=== PATIENT | male | born 1930 | race Caucasian/White ===

== ENCOUNTER 2017-05-18 06:24 | Inpatient (IN) | payer OTHER ==
[2017-04-29 13:05] VITALS: Ht 172.7 cm; Wt 93.2 kg
--- NOTE | 2017-05-14 18:33 | History and Physical ---
History & Physical Date May 14, 2017. Chief Complaint RIGHT KNEE PAIN History of Present Illness The patient is a 86 year old male with complaints of right knee pain for years. cant do adls. Pt has tried nsaids and PT with no relief. Hes ready for right tka. Has hx of prostate ca in 2012. Additional History Hepatic Disease: No Endocrine Disorder: No Kidney Disease: No Hypertension: Yes Heart Disease: No Bleeding Tendencies: No Infectious Diseases: No Allergies Coded Allergies: No Known Allergies (Unverified , 04/29/17) Home Medications Scheduled Amoxicillin (Amoxil), 2,000 MG PO UD Aspirin (Aspirin Ec), 81 MG PO QAM Atenolol (Atenolol), 12.5 MG PO QAM Atorvastatin (Lipitor), 10 MG PO HS Coenzyme Q10 (Ubidecarenone) (Co Q 10), 100 MG PO QAM Furosemide (Lasix), 40 MG PO QAM Gwrhyyibckn-Cbhgdxvhmmp-Wqi C- (Glucosamine Chondroitin), 1 CAP PO QAM Lisinopril (Zestril), 10 MG PO QAM Meclizine HCl (Meclizine HCl), 12.5 MG PO QAM Pantoprazole (Protonix), 40 MG PO QAM Vitamins C & E (Vitamin C), 1 CAP PO QAM Physical Examination Skin: warm/dry, no rash Eyes: normal inspection, EOMI, sclerae normal ENT: normal ENT inspection, pharynx normal Head: normocephalic, atraumatic Neck: supple, no adenopathy, trachea midline Respiratory/Chest: lungs clear, normal breath sounds, no respiratory distress Cardiovascular: regular rate, rhythm, no edema, no murmur Abdomen / GI: normal bowel sounds, non tender Back: normal inspection Extremities: normal inspection, normal range of motion, + pertinent finding ( right knee has terrible rom and pain with rom. ) Neurologic/Psych: no motor/sensory deficits, alert, normal reflexes, oriented x 3 Diagnosis DJD RIGHT KNEE Plan of Treatment PLAN IS FOR RIGHT TKA, HOME PT, AND PT WILL BE ON XARELTO SECONDARY TO PROSTATE CA.
[~2017-05-18] VITALS: Ht 172.7 cm; Wt 93.2 kg
[2017-05-18] VITALS (9 sets, daily range): BP systolic 133–188; BP diastolic 59–78; PULSE 48–69; TEMP 36.3–36.5; O2SAT 94–98
[~2017-05-18 06:24] MED LIST: ACETAMINOPHEN 500 MG TAB PO SCH; AMOX500T3 PO; ASPI81TA28 PO; ATOR10TA88 PO; CEFAZOLIN 2000 MG/60 ML D5W 60 ML IV SCH; COEN1CAP17 PO; CeleBREX 200 MG CAP PO SCH; DEXAMETHASONE 4 MG TAB PO SCH; FAMOTIDINE 20 MG TAB PO SCH; FRS/40 PO; GLUC1CAP35 PO; LACTATED RINGER'S 1000ML IV SCH; LISI-461 PO; MECL1TAB40 PO; METOCLOPRAMIDE HCL 10 MG TAB PO SCH; PANT40TA PO; ROPIVACAINE 5MG/ML 30 ML 150 MG, BUPIVACAINE/EPINEPHR 0.5% MPF 30 ML, KETOROLAC TROMETH... INFIL SCH; SODIUM CHLORIDE 0.9% 1000ML 1,000 ML IV SCH; TNR25 PO; TRANEXAMIC ACID INJ 1,000 MG in SODIUM CHLORIDE 0.9% 100ML 100 ML IV SCH; VITACAP26 PO
[2017-05-18] MEDS ORDERED: BUPIVACAINE 0.5 % 5 MG/1 ML PF 10ML VIAL ONE (06:34)
[2017-05-18] MEDS ORDERED: BUPIVACAINE 0.25% 30 ML VIAL ONE (06:34)
[2017-05-18] MEDS ORDERED: EpINEphrine INJ 1MG/ML AMP 1 MG/ML AMP ONE (06:35)
[2017-05-18] MEDS ORDERED: FENTANYL CITRATE INJ 50 MCG/1 ML 2 ML VIAL ONE (06:44)
[2017-05-18] MEDS ORDERED: LIDOCAINE HCL 2% 2 ML VIAL (20MG/ML) ONE (06:44)
[2017-05-18] MEDS ORDERED: PROPOFOL IV EMULSION 10 MG/ML 20 ML VIAL IV ONE (06:44)
[2017-05-18] MEDS ORDERED: MIDAZOLAM HCL 1 MG/ML 2ML VIAL ONE (06:44)
--- NOTE | 2017-05-18 06:51 | History & Physical Bridge Note ---
H&P Re-Evaluation Bridge Note: I have examined the patient, reviewed the History & Physical and in the interval since the performance of the History & Physical I have noted the following changes of clinical significance: No changes noted
[2017-05-18] MEDS ORDERED: POVIDONE-IODINE OP SOLN 30 ML BTL ONE (07:02)
[2017-05-18] MEDS ORDERED: ORTHO JOINT ANESTHETIC ONE (07:02)
[2017-05-18] MEDS ORDERED: BACITRACIN 50000 UNIT VIAL ONE (07:02)
[2017-05-18] MEDS ORDERED: EpHEDrine SULFATE INJ 50 MG/ML AMP IV PRN (08:15)
[2017-05-18] MEDS ORDERED: FENTANYL CITRATE INJ 50 MCG/1 ML 2 ML VIAL IV PRN (08:15)
[2017-05-18] MEDS ORDERED: PROMETHAZINE HCL INJ 6.25 MG in SODIUM CHLORIDE 0.9% 50ML 50 ML IV PRN (08:15)
[2017-05-18] MEDS ORDERED: ONDANSETRON INJ 2 MG/ML 2 ML VIAL IV PRN ×2 (08:15→09:30)
[2017-05-18] MEDS ORDERED: ATROPINE SULFATE 0.1 MG/ML 5ML SYR IV PRN (08:15)
[2017-05-18] MEDS ORDERED: EpHEDrine SULFATE 50MG/5ML SYR ONE (09:04)
[2017-05-18] MEDS ORDERED: MAGNESIUM HYDROXIDE SUSP 30 ML UDC PO PRN (09:30)
[2017-05-18] MEDS ORDERED: ZOLPIDEM TARTRATE 5 MG TAB PO PRN (09:30)
[2017-05-18] MEDS ORDERED: OXYCODONE HCL IR 5 MG TAB (IMMEDIATE RELEASE) PO PRN (09:30)
[2017-05-18] MEDS ORDERED: BISACODYL 10 MG SUPP PR PRN (09:30)
[2017-05-18] MEDS ORDERED: ALUMINUM/MAGNESIUM/SIMETH (MAALOX MAX) 30 ML UDC PO PRN (09:30)
--- NOTE | 2017-05-18 09:35 | [facility] Operative Report ---
Operative Report Operative Date May 18, 2017. Pre-Operative Diagnosis Right Knee Degenerative Joint Disease Post-Operative Diagnosis Right Knee Degenerative Joint Disease Procedure(s) Performed Right Total Knee Arthroplasty Surgeon Dr. Ward Leon Paediatrician Surgeon(s) Amilcar Ornelas PA-C Estimated Blood Loss 20ml Findings As above Specimens Permanent: A. Right Knee Bone and Tissue Complication(s) None Disposition Recovery Room / PACU Description of Procedure IMPLANTS USED: (For a Bhavik knee) INDICATIONS: [Mr./. ] is a pleasant (male) who has unfortunately failed all forms of conservative measures. Therefore, they have decided to undergo elective surgical intervention. All risks and benefits of the surgery were discussed with the patient and the family in entirety. PROCEDURE: The patient was brought to the operating room and properly identified by myself, anesthesia, and staff. Patient was given a spinal anesthesia and placed on the operating table in the supine position. Tourniquets were applied to the right upper thigh. The leg was then prepped and draped in usual sterile fashion. We made a standard midline approach over the patella and dissected down through the subcutaneous tissue to identify the capsule and performed a medial capsulotomy with the patella everted and the knee flexed. We then removed the spurs from around the femur and proximal tibia. I then put in a pilot boat operator hole in the femur, put the IM cutting guide into place in approximately 5 degrees of valgus, and then the distal femoral cut was made. The femur measure to be a size 7. This was then put into place. We made the appropriate cuts and then placed a retractor behind the proximal tibia to retract anteriorly. We then placed the extramedullary cutting guide in place , made sure we had the appropriate varus and valgus alignment and appropriate slope, and the proximal tibia cut was made. It measured to be a size 6. A size 6 guide was then put in place. We used the tibial punch then put the trial components into place. We had very good range of motion, excellent stability, and excellent patella tracking. We removed the trial components and irrigated the wound. We impacted the components in place using antibiotic cement. All excess cement was removed. We then irrigated the wound once more. We closed the capsule with 0 PDS suture, deep dermis with 2-0 Vicryl, and finally the skin with graciela. A sterile dressing was applied. The patient was taken to the recovery room in stable condition. Due to the complex nature of the procedure, the entire surgery was performed with the operational assistance of [the (SERG)]. The lead recreation assistant was under direct supervision, was involved in the actual performance of all aspects of the surgical procedure including hemostasis, tissue retraction and incision, instrument management, patient positioning, and wound closure. I attest to the content of the Intraoperative Record and any orders documented therein. Any exceptions are noted below.
--- NOTE | 2017-05-18 10:42 | Anesthesiology Progress Note ---
Anesthesia Post Op Note Date & Time May 18, 2017 at 10:42 Vital Signs Pain Intensity: 0 Vital Signs Past 12 Hours Date Time Temp Pulse Resp B/P (MAP) Pulse Ox O2 Delivery O2 Flow Rate FiO2 05/18/17 10:35 36.1 65 19 129/64 97 Nasal Cannula 2 05/18/17 10:25 60 18 121/54 98 Nasal Cannula 2 05/18/17 10:15 61 18 120/54 99 Oxymask 10 05/18/17 10:08 36.1 94 20 120/49 98 Oxymask 10 05/18/17 07:15 36.4 48 20 188/59 97 Room Air Notes Mental Status: alert / awake / arousable, participated in evaluation Pt Amnestic to Procedure: Yes Nausea / Vomiting: adequately controlled Pain: adequately controlled Airway Patency, RR, SpO2: stable & adequate BP & HR: stable & adequate Hydration State: stable & adequate Neuraxial Anesthesia: was administered, sensory block is resolving Anesthetic Complications: no major complications apparent
[2017-05-18 12:08] LABS: CREATININE 1.6 mg/dl (0.60-1.40)
[2017-05-18] MEDS: SODIUM CHLORIDE 0.9% 1000ML 1,000 ML IV SCH ×2 (12:26→19:34)
[2017-05-18] MEDS ORDERED: INFLUENZA VACCINE HIGH DOSE 65+ 0.5 ML SYR IM. ONE (13:45)
[2017-05-18] MEDS ORDERED: INFLUENZA ADMINISTRATION CHARGE ONE (13:45)
[2017-05-18] MEDS: ACETAMINOPHEN 500 MG TAB PO SCH ×2 (14:01→21:31)
[2017-05-18] MEDS ORDERED: HydrALAZINE HCL 20 MG/ML VIAL IV. PRN (15:00)
--- NOTE | 2017-05-18 15:03 | Medical Consult ---
Consultation Date of Consultation: May 18, 2017. Attending Physician: Ward Leon DO Reason for Consultation: Medical Management History of Present Illness Mr. Gannon is an 86 y/o male with PMHx of CAD with possible NC and S/P CABG x 2 (2009), HTN, HLD, Prostate CA who is S/P R TKA on 05/18. Patient reports that they suspect he had an NC based on EKG findings from his PCP. He underwent stress testing and heart catheterization that showed complete occlusion and underwent CABG. He reports that he has a murmur but is stable from a cardiac standpoint. He denies anginal symptoms. He denies H/O CHF but does report some intermittent fluid retention. No records on file to review. Cr on labs at 1.6 with only one lab to review with Cr of 1.7 and denies CKD. He reports pain is currently controlled and tolerating a diet. Past Medical/Surgical History 1. CAD with Possible NC S/P CABG (2009) 2. HTN 3. HLD 4. Prostate CA Family History Diabetes mellitus Hypertension Kidney disease Social History Smoking Status: Never Smoker Smokeless Tobacco Use: No Alcohol Use: none Drug Use: none Allergies Coded Allergies: No Known Allergies (Unverified , 05/18/17) Current Inpatient Medications Current Inpatient Medications Medications (Trade) Dose Ordered Sig/Todd Route Start Time Stop Time Status Last Admin Dose Admin Sodium Chloride 1,000 ml @ 100 mls/hr Q10H IV 05/18/17 09:26 05/19/17 09:25 05/18/17 12:26 100 MLS/HR Cefazolin Sodium 2000 mg/Dextrose 60 ml @ 100 mls/hr Q8H IV 05/18/17 16:00 05/19/17 00:35 Oxycodone HCl (Roxicodone Immediate Rel Tab) 1 TABLET FOR PAIN RATING... Q4H PRN PO 05/18/17 09:30 06/01/17 09:29 Acetaminophen (Tylenol Tab) 1,000 mg Q8H PO 05/18/17 14:00 06/17/17 09:29 05/18/17 14:01 1,000 MG Magnesium Hydroxide (Milk Of Magnesia Susp) 30 ml Q6H PRN PO 05/18/17 09:30 06/17/17 09:29 Bisacodyl (Dulcolax Supp) 10 mg DAILY PRN MS 05/18/17 09:30 06/17/17 09:29 Docusate Sodium (coLACE CAP) 100 mg BID PO 05/18/17 21:00 06/17/17 20:59 Diphenhydramine HCl (Benadryl Cap) 25 mg Q8H PRN PO 05/18/17 09:30 06/17/17 09:29 Al Hydrox/Mg Hydrox/Simethicone (Maalox Max Susp) 15 ml Q4H PRN PO 05/18/17 09:30 06/17/17 09:29 Zolpidem Tartrate (Ambien Tab) 5 mg HSZ PRN PO 05/18/17 09:30 06/17/17 09:29 Ondansetron HCl (Zofran Inj) 4 mg Q6H PRN IV 05/18/17 09:30 06/17/17 09:29 Tranexamic Acid 1000 mg/Sodium Chloride 110 ml @ 660 mls/hr Q6H IV 05/18/17 16:00 05/18/17 16:09 Dexamethasone Sodium Phosphate 10 mg/Syringe 2.5 ml @ 1 mls/min TODAY@0730 IV 05/19/17 07:30 05/19/17 07:33 Rivaroxaban (Xarelto Tab) 10 mg Q24H PO 05/19/17 07:00 06/18/17 06:59 Atenolol (Tenormin Tab) 12.5 mg QAM PO 05/19/17 09:00 06/18/17 08:59 Atorvastatin Calcium (Lipitor Tab) 10 mg HS PO 05/18/17 21:00 06/17/17 20:59 Pantoprazole Sodium (Protonix Tab) 40 mg QAM PO 05/19/17 09:00 06/18/17 08:59 Meclizine HCl (Antivert Tab) 12.5 mg QAM PO 05/19/17 09:00 06/18/17 08:59 Review of Systems Constitutional: No fever, No chills ENT: No nasal symptoms, No sore throat, No trouble swallowing Respiratory: No cough, No shortness of breath Cardiovascular: No chest pain, No edema, No palpitations Abdomen: No pain, No nausea, No vomiting, No diarrhea, No constipation Musculoskeletal: No swelling, No calf pain Genitourinary - Male: No dysuria Hematologic / Lymphatic: No abnormal bleeding/bruising Integumentary: No rash Physical Exam Date Time Temp Pulse Resp B/P (MAP) Pulse Ox O2 Delivery O2 Flow Rate FiO2 05/18/17 13:45 58 17 137/68 (91) 97 Nasal Cannula 2.0 05/18/17 12:45 36.5 58 17 152/73 (99) 97 Nasal Cannula 2.0 05/18/17 11:45 36.5 57 17 156/78 (104) 98 Nasal Cannula 2.0 05/18/17 11:15 36.4 58 17 148/69 (95) 97 Nasal Cannula 2.0 05/18/17 10:45 98 Nasal Cannula 2.0 05/18/17 10:45 Nasal Cannula 98.0 05/18/17 10:45 36.4 69 16 133/66 (88) 98 Nasal Cannula 2.0 05/18/17 10:35 36.1 65 19 129/64 97 Nasal Cannula 2 05/18/17 10:25 60 18 121/54 98 Nasal Cannula 2 05/18/17 10:15 61 18 120/54 99 Oxymask 10 05/18/17 10:08 36.1 94 20 120/49 98 Oxymask 10 05/18/17 07:15 36.4 48 20 188/59 97 Room Air General Appearance: WD/WN, no apparent distress Head: normocephalic, atraumatic Eyes: sclerae normal ENT: hearing grossly normal Neck: supple, no JVD, trachea midline Respiratory/Chest: lungs clear, no respiratory distress, no accessory muscle use, + decreased breath sounds (diffuse) Cardiovascular: regular rate, rhythm, no gallop, + systolic murmur (III/) Abdomen/GI: normal bowel sounds, non tender, soft Extremities/Musculoskelatal: normal capillary refill, no pedal edema, + pertinent finding (RLE with MARIAM wrap that is C/D/I) Neurologic/Psych: alert, oriented x 3 Skin: normal color, warm/dry Laboratory Results Last 24 Hours Test 05/18/17 11:34 Creatinine 1.60 mg/dl Est Creatinine Clear Calc Drug Dose 38.1 ml/min Estimated GFR () 45.2 Estimated GFR (Non- 39.0 Assessment & Plan Mr. Gannon is an 86 y/o male with PMHx of CAD with possible NC and S/P CABG x 2 (2009), HTN, HLD, Prostate CA who is S/P R TKA on 05/18. S/P R TKA on 05/18: - Pain management, DVT prophylaxis, PT/OT, IVF per primary - DVT Prophylaxis - Xarelto 10 mg daily Elevated Cr: - Unknown baseline given limited records - possible underlying CKD vs BRADLEY - previous lab on chart Cr 1.7 - Hold Lasix and Lisinopril overnight - evaluated kidney function in AM prior to reinstitution CAD with Possible NC and S/P CABG x 2 and HLD: - Reports fluid retention but denies known CHF - appears euvolemic - continue to monitor -- Echo (February 2017) - EF 60%, severe LVH, probable trileaflet and mildly thickened aortic valve with trace AI -- Lexiscan - mild to moderate mid-lateral and mid anterolateral ischemic changes - Atorvastatin 10 mg daily - ASA has not been continued - would recommend resuming if alright with ortho HTN: - Atenolol 12.5 mg daily .Attending Addendum: I have physically seen this patient, have directed the physician assistants medical activities, and agree with the H&P as noted above with the following exceptions as noted. Assessment and Plan: Status post right total knee arthroplasty on 05/18-- The patient has been seen postoperatively and was medically stable. CAD/hypertension/status post CABG 2/renal insufficiency-- Hold Lasix and lisinopril overnight. Continue atenolol 12.5 mg by mouth daily Repeat BMP and magnesium level in the a.m.
[2017-05-18] MEDS ORDERED: TRANEXAMIC ACID INJ 1,000 MG in SODIUM CHLORIDE 0.9% 100ML 100 ML IV SCH (16:00)
[2017-05-18] MEDS: CEFAZOLIN IV 2,000 MG in DEXTROSE 5% 50ML 50 ML IV SCH ×2 (17:18→23:56)
[2017-05-18] MEDS ORDERED: ATORVASTATIN 10 MG TAB PO SCH (21:00)
[2017-05-18] MEDS: DOCUSATE SODIUM 100 MG CAP PO SCH (21:31)
[2017-05-19 03:11] VITALS: BP 133/55; PULSE 51; TEMP 36.6; O2SAT 99
[2017-05-19] MEDS: ACETAMINOPHEN 500 MG TAB PO SCH ×2 (06:09→13:48)
[2017-05-19] MEDS: SODIUM CHLORIDE 0.9% 1000ML 1,000 ML IV SCH (06:09)
[2017-05-19 06:16] VITALS: O2SAT 97
[2017-05-19 06:17] LABS: MEAN CELL VOLUME 91.2 fL (80-100); MEAN CORPUSCULAR HEMOGLOBIN 30.5 pg (25-34); MEAN CORPUSCULAR HGB CONC 33.4 g/dl (32-36); MEAN PLATELET VOLUME 10.5 fL (7.4-10.4); PLATELET COUNT 278 K/uL (130-400); RED BLOOD COUNT 3.51 M/uL (4.7-6.1); WHITE BLOOD COUNT 17.18 K/uL (4.8-10.8)
[2017-05-19] MEDS ORDERED: RIVAROXABAN 10 MG TAB PO SCH (07:00)
[2017-05-19 07:01] LABS: BLOOD UREA NITROGEN 36 mg/dl (7-18); BUN/CREATININE RATIO 18.7 (10-20); CALCIUM 8.6 mg/dl (8.5-10.1); CARBON DIOXIDE 21 mmol/L (21-32); CHLORIDE 111 mmol/L (98-107); GLUCOSE 109 mg/dl (70-99); SODIUM 140 mmol/L (136-145)
[2017-05-19] MEDS ORDERED: DEXAMETHASONE INJ 10 MG in SYRINGE 0 ML IV SCH (07:30)
--- NOTE | 2017-05-19 07:37 | Anesthesiology Progress Note ---
Anesthesia Post Op Note Date & Time May 19, 2017 at 07:36 Vital Signs Pain Intensity: 0.0 Vital Signs Past 12 Hours Date Time Temp Pulse Resp B/P (MAP) Pulse Ox O2 Delivery O2 Flow Rate FiO2 05/19/17 07:05 Room Air 05/19/17 06:16 97 Room Air 05/19/17 03:11 36.6 51 16 133/55 (81) 99 Nasal Cannula 2.5 05/18/17 23:55 Nasal Cannula 3.0 05/18/17 23:15 36.4 59 16 154/74 (100) 97 Nasal Cannula 3.0 05/18/17 19:56 36.3 54 17 149/69 (95) 94 Room Air Notes Mental Status: alert / awake / arousable, participated in evaluation Pt Amnestic to Procedure: Yes Nausea / Vomiting: adequately controlled Pain: adequately controlled Airway Patency, RR, SpO2: stable & adequate BP & HR: stable & adequate Hydration State: stable & adequate Neuraxial Anesthesia: sensory block resolved Anesthetic Complications: no major complications apparent
[2017-05-19 07:39] VITALS: BP 147/72; PULSE 50; TEMP 36.4; O2SAT 97
--- NOTE | 2017-05-19 08:31 | Orthopedic Progress Note ---
Orthopedic Progress Note Date of Service May 19, 2017. Subjective Post OP Day: 1 Reports: feeling well, Denies: chest pain, SOB, nausea / vomiting, light headedness, calf pain Objective calves soft nontender, N/V intact, capillary refill less than 2 sec., dressing C /D/I, A&O x3, toes mobile, hemovac drainage (230/75) Date Time Temp Pulse Resp B/P (MAP) Pulse Ox O2 Delivery O2 Flow Rate FiO2 05/19/17 07:39 36.4 50 16 147/72 (97) 97 Room Air 05/19/17 07:05 Room Air 05/19/17 06:16 97 Room Air 05/19/17 03:11 36.6 51 16 133/55 (81) 99 Nasal Cannula 2.5 05/18/17 23:55 Nasal Cannula 3.0 05/18/17 23:15 36.4 59 16 154/74 (100) 97 Nasal Cannula 3.0 05/18/17 19:56 36.3 54 17 149/69 (95) 94 Room Air 05/18/17 15:40 36.4 54 16 142/63 (89) 98 Nasal Cannula 2.0 05/18/17 15:33 Nasal Cannula 2.0 05/18/17 13:45 58 17 137/68 (91) 97 Nasal Cannula 2.0 05/18/17 12:45 36.5 58 17 152/73 (99) 97 Nasal Cannula 2.0 05/18/17 11:45 36.5 57 17 156/78 (104) 98 Nasal Cannula 2.0 05/18/17 11:15 36.4 58 17 148/69 (95) 97 Nasal Cannula 2.0 05/18/17 10:45 98 Nasal Cannula 2.0 05/18/17 10:45 Nasal Cannula 98.0 05/18/17 10:45 36.4 69 16 133/66 (88) 98 Nasal Cannula 2.0 05/18/17 10:35 36.1 65 19 129/64 97 Nasal Cannula 2 05/18/17 10:25 60 18 121/54 98 Nasal Cannula 2 05/18/17 10:15 61 18 120/54 99 Oxymask 10 05/18/17 10:08 36.1 94 20 120/49 98 Oxymask 10 Laboratory Results 24 Hours: Test 05/19/17 05:57 Hematocrit 32.0 % Hemoglobin 10.7 g/dL Additional Notes: Item Value Date Time Blood Urea Nitrogen 36 mg/dl H 05/19/1757 Creatinine 1.90 mg/dl H # 05/19/17 0557 Assessment & Plan Assessment: POD#1 SP RIGHT TKA CKD CAD Plan: PT/OT DVT PROPH- XARELTO, OK TO RESUME ASA PAIN MANAGEMENT- KARMA AND TYLENOL MEDICAL MANAGEMENT- - NEED TO MONITOR BUN/CR. STILL ELEVATED TODAY DC PLANNING- PATIENT PLANNING TO GO HOME WITH HOME PT. MAY CONSIDER DC TODAY, WILL AWAIT MEDICAL EVAL.
--- NOTE | 2017-05-19 08:33 | Discharge Instructions ---
Discharge Instructions Date of Service May 19, 2017. Admission Reason for Admission: Right Knee Osteoarthritis Discharge Discharge Diagnosis / Problem: SP RIGHT TKA Discharge Goals Goal(s): Decrease discomfort, Improve function, Increase independence Activity Recommendations Activity Limitations: per Instructions/Follow-up section . Instructions / Follow-Up Instructions / Follow-Up ACTIVITY RECOMMENDATIONS: SELF CARE INSTRUCTIONS AFTER TOTAL KNEE REPLACEMENT A. You may need to continue a physical therapy program after discharge from the hospital. There are several options available to you. Your doctor will assist you in selecting the best one for you. 1. An out-patient facility 2 to 3 times a week for therapy or home therapy. 2. Continue working on all exercises taught to you in the hospital. Your goals should be to increase bending of your knee to 90 degrees and beyond and to fully straighten your knee. B. You may progress at your own pace from walking with a walker or crutches to a cane; then to no assistive devices. C. Make walking a part of your daily routine. Be up as much as comfortable with rest periods throughout the day. Rest with leg elevation is very important. Use the ice wrap frequently for the first 3-4 weeks. D. There are no restrictions on activities. 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 E. Wear the long elastic stockings (DENISSE hose) 20 hours a day for 2 weeks after surgery. They can be removed several times a day for laundering and for a bath. F. You may shower, no tub baths until cleared by your doctor. SPECIAL CARE INSTRUCTIONS: VERY IMPORTANT TO READ AND REVIEW A. There are a few signs you need to watch for after you are home. Call [facility] if you notice any of the followin. Increased severe knee pain. Some pain is expected especially when you exercise. 2. Increased swelling in your leg or knee; pain or swelling of the calf muscle in either lower leg. 3. Any fluid drainage from the incision. 4. Shortness of breath or chest pain. B. Please call [facility] at if you have any concerns or questions about your operation or recovery. The doctor or his nurse will return your call promptly. C. You must take antibiotics before dental work, bladder, bowel or other surgery. Your doctor will provide you with a permanent care to carry describing this precaution. IMPORTANT: * REMEMBER TO TAKE ASPIRIN, 81 MG, TWICE DAILY FOR 4 WEEKS UNLESS OTHERWISE DIRECTED. THIS IS YOUR BLOOD THINNER. * HIGH RISK PATIENTS MAY BE PRESCRIBED A STRONGER BLOOD THINNER. THIS WILL BE PROVIDED AT DISCHARGE. * CALL IF INCREASED PAIN, REDNESS, DRAINAGE OR FEVER GREATER THAT 101. * WEAR DENISSE HOSE 20 HOURS PER DAY FOR 2 WEEKS. DERMABOND Prineo- This is a mesh tape dressing that is covered with glue. It should remain in place until the incision is properly healed, usually 10-14 days. This dressing is designed to naturally slough off. You may trim the excess mesh tape as it peels off. Incision may be briefly wet in a shower. Dry immediately by blotting with a clean, dry towel. Do not bath or swim until instructed by your doctor. Do not scratch, rub, or pick at the dressing. Do not apply any topical ointments or lotions until dressing is completely removed and/or instructed by your doctor. There may be a small piece of suture material at one end of your incision. Do not pull or trim this. If it is bothersome or catching on clothing, you may cover it with a band-aid. FOLLOW UP VISIT: If appointment is not already scheduled: Please call [facility] to make a follow-up appointment for 2 weeks after your surgery at . Current Hospital Diet Patient's current hospital diet: Regular Diet Discharge Diet Recommended Diet: Regular Diet Procedures Procedures Performed: Right Total Knee Arthroplasty Pending Studies Studies pending at discharge: no Medical Emergencies . Who to Call and When: Medical Emergencies: If at any time you feel your situation is an emergency, please call 911 immediately. . Non-Emergent Contact Non-Emergency issues call your: Surgeon . "Provider Documentation" section prepared by Yanni Guzman. . VTE Core Measure Inpt VTE Proph given/why not?: Other Anticoagulation (xarelto), SCD's [place] Drug Monitoring Program Search Results: patient reviewed within database, no issues identified
[2017-05-19] MEDS: DOCUSATE SODIUM 100 MG CAP PO SCH (08:44)
[2017-05-19] MEDS ORDERED: PANTOprazole SOD 40 MG TAB PO SCH (09:00)
[2017-05-19] MEDS ORDERED: FUROSEMIDE 40 MG TAB PO SCH (09:00)
[2017-05-19] MEDS ORDERED: LISINOPRIL 10 MG TAB PO SCH (09:00)
[2017-05-19] MEDS ORDERED: MECLIZINE HCL 12.5 MG TAB PO SCH (09:00)
--- NOTE | 2017-05-19 09:40 | Clinical Documentation Query ---
CLINICAL VALIDATION QUERY 1 OF 2 This 86 yo patient was noted to have a sCr of 1.6 and 1.7 mg/dl and GFR 39.0 at admission with S/P right total knee surgery. Possible acute kidney injury and CKD were noted on the H&P and treatment rendered. Based on RIFLE criteria, CKD staging,and the clinical indicators present: In your clinical opinion is this patient being managed for: ( ) Acute kidney failure and CKD III ( x ) CKD III ( ) BRADLEY ( ) Not Agree QUERY 2 OF 2 In your clinical opinion is this patient being managed for: ( ) Chronic diastolic CHF ( ) Heart failure with preserved ejection fraction ( x ) Not Agree-has peripheral edema and uses lasix, but no mention of diastolic dysfunction on recent ECHO from 03/2017 on scanned in outside records from Cardiology ( ) Other explanation of clinical findings (Please Explain) ( ) Unable to determine (Please Define) ( ) Need to Discuss The medical record reflects the following clinical findings, treatment, and risk factors. Clinical Indicators: February echo reports EF 60%, severe LVH, s/p OR Treatment: home lasix 40 mg, lisinopril 10 mg Risk Factors: Age, s/p surgical intervention, decreased breath sounds, CAD, s/p OR Please clarify and document your clinical opinion in the progress notes and discharge summary. Terms such as "probable", "suspected", "likely", "questionable", "possible", or "still to be ruled out" are acceptable. IF IN AGREEMENT, YOU MUST DOCUMENT ABOVE DIAGNOSTIC STATEMENT IN DAILY PROGRESS NOTES AND DISCHARGE SUMMARY. This document is not part of the patient's record. Thank You, Felicia Sheppard RN [phone]
[2017-05-19 12:01] VITALS: BP 129/65; PULSE 45; TEMP 36.3; O2SAT 95
--- NOTE | 2017-05-19 13:59 | Clinical Documentation Query ---
CLINICAL DOCUMENTATION QUERY An 86 y/o male with PMHx of CAD with possible SC and S/P CABG x 2 (2009), HTN, HLD, Prostate CA who is S/P R TKA on 05/18. In your clinical opinion is this patient being managed for: ( x ) Acute blood loss anemia - Possible with hemoconcentration and likely underlying chronic anemia - limited labs for interpretation - only did initial consultation and will not be charting any further on this patient ( ) Not Agree ( ) Other explanation of clinical findings (Please Explain) ( ) Unable to determine (Please Define) ( ) Need to Discuss The medical record reflects the following clinical findings, treatment, and risk factors. Clinical Indicators: 3 gm drop in Hgb: 14.0 trending down to 10.7, hemovac drain 300 ml Treatment: IV hydration, type and screen, O2, serial CBCs Risk Factors: s/p surgical intervention, age Please clarify and document your clinical opinion in the progress notes and discharge summary. Terms such as "probable", "suspected", "likely", "questionable", "possible", or "still to be ruled out" are acceptable. IF IN AGREEMENT, YOU MUST DOCUMENT ABOVE DIAGNOSTIC STATEMENT IN DAILY PROGRESS NOTES AND DISCHARGE SUMMARY. This document is not part of the patient's record. Thank You, Felicia Sheppard RN [phone]
[2017-05-19] MEDS ORDERED: ASPIRIN 81 MG ECTAB PO ONE (16:00)
[2017-05-19] MEDS ORDERED: XRL10 PO (16:01)
[2017-05-19] MEDS ORDERED: RXC5 PO (16:01)
[2017-05-19 16:04] VITALS: BP 150/60; PULSE 55; TEMP 36.4; O2SAT 96
[2017-05-19 16:22] VITALS: BP 150/60; PULSE 55; TEMP 36.4; O2SAT 96
--- NOTE | 2017-05-20 00:28 | Hospitalist Progress Note ---
Hospitalist Progress Note Date of Service May 19, 2017. Subjective Pt evaluation today including: conversation w/ patient, conversation w/ family Pt feeling great. Pain controlled. No CP, no SOB. Anxious for discharge. All Other Systems: Reviewed and Negative Objective Vital Signs Date Time Temp Pulse Resp B/P (MAP) Pulse Ox O2 Delivery O2 Flow Rate FiO2 05/19/17 12:01 36.3 45 16 129/65 (86) 95 Room Air 05/19/17 07:39 36.4 50 16 147/72 (97) 97 Room Air 05/19/17 07:05 Room Air 05/19/17 06:16 97 Room Air 05/19/17 03:11 36.6 51 16 133/55 (81) 99 Nasal Cannula 2.5 05/18/17 23:55 Nasal Cannula 3.0 05/18/17 23:15 36.4 59 16 154/74 (100) 97 Nasal Cannula 3.0 05/18/17 19:56 36.3 54 17 149/69 (95) 94 Room Air Physical Exam General Appearance: WD/WN, no apparent distress Eyes: normal inspection, sclerae normal ENT: hearing grossly normal Neck: trachea midline Respiratory/Chest: lungs clear, normal breath sounds, no respiratory distress, no accessory muscle use Cardiovascular: regular rate, rhythm, no edema, no gallop, no murmur Abdomen: normal bowel sounds, non tender, soft Extremities: no calf tenderness, + pertinent finding (rt knee in dressing and wrap) Neurologic/Psychiatric: alert, normal mood/affect Skin: normal color, warm/dry, no rash Laboratory Results Last 24 Hours Test 05/19/17 05:57 05/19/17 07:31 White Blood Count 17.18 K/uL Red Blood Count 3.51 M/uL Hemoglobin 10.7 g/dL Hematocrit 32.0 % Mean Corpuscular Volume 91.2 fL Mean Corpuscular Hemoglobin 30.5 pg Mean Corpuscular Hemoglobin Concent 33.4 g/dl RDW Standard Deviation 46.3 fL RDW Coefficient of Variation 14.0 % Platelet Count 278 K/uL Mean Platelet Volume 10.5 fL Sodium Level 140 mmol/L Potassium Level mmol/L 4.8 mmol/L Chloride Level 111 mmol/L Carbon Dioxide Level 21 mmol/L Anion Gap 8.0 mmol/L Blood Urea Nitrogen 36 mg/dl Creatinine 1.90 mg/dl Est Creatinine Clear Calc Drug Dose 32.1 ml/min Estimated GFR () 36.7 Estimated GFR (Non- 31.7 BUN/Creatinine Ratio 18.7 Random Glucose 109 mg/dl Calcium Level 8.6 mg/dl Assessment and Plan Mr. Gannon is an 86 y/o male with PMHx of CAD S/P CABG x 2 (2009), HTN, HLD, Prostate CA, and CKD stage III who is S/P R TKA on 05/18. S/P R TKA on 05/18: - Pain management, DVT prophylaxis, PT/OT, per primary - DVT Prophylaxis - Xarelto 10 mg daily -plan for dc to home today with HH Acute renal insufficiency in setting of CKD stage III-baseline machinist brake is 1.7 since switching from HCTZ to lasix as per outpt Cardiology notes. [employer] today post-op day #1 is 1.9. He feels well, his lasix and lisinopril are on hold, making urine - Unknown baseline given limited records - possible underlying CKD vs BRADLEY - previous lab on chart Cr 1.7 - continue to Hold Lasix and Lisinopril and recommended ok to go home with BMP to be checked by Home Health in 1-2 days--> then check with Isotope Hydrologist or PCP if ok to restart lasix and lisinopril CAD S/P CABG x 2 and HLD, severe LVH on recent ECHO but no mention of diastolic dysfunction or diastolic CHF: has h/o peripheral edema - - appears euvolemic, holding lasix post-op especially with machinist brake bumped up as above -- Echo (February 2017) - EF 60%, severe LVH, probable trileaflet and mildly thickened aortic valve with trace AI -- Lexiscan - mild to moderate mid-lateral and mid anterolateral ischemic changes-seen by Cardiology who said ischemia was very mild on scan, moderate risk for surgery - Atorvastatin 10 mg daily - restarted ASA and advised RN ok to give atenolol despite his bradycardia as this is his norm -advised pt to go immediately to ER if has chest pain or worsening SOB after returning home HTN:controlled - Atenolol 12.5 mg daily Dispo-to home with HH today
[2017-05-20] MEDS ORDERED: ASPIRIN 81 MG ECTAB PO SCH (09:00)
--- NOTE | 2017-05-21 15:42 | DISCHARGE SUMMARY ---
DISCHARGE DIAGNOSIS: Right knee degenerative joint disease. SECONDARY DIAGNOSES: Coronary artery disease, hypertension, hyperlipidemia, prostate carcinoma. CONSULT: Alba Guerra PA-C/Aniket Menezes MD COMPLICATIONS: None. PROCEDURE: Right total knee arthroplasty performed by Dr. Leon on 05/18/2017. BRIEF HISTORY: As dictated in the history and physical. HOSPITAL SUMMARY: The patient was admitted on the above-noted date and had the above-noted surgery performed, which he tolerated well. The patient was started on a medical management per [facility] postoperatively and they continued to follow the patient during his stay. By his first postoperative day, he was feeling well and had no complaints. Calves were soft, nontender, neurovascularly intact. Dressings clean, dry and intact. Toes were mobile. Vital signs were stable and he was afebrile. Hemoglobin was 10.7, BUN and creatinine were 36/1.9. He was started on physical therapy protocol and continued on DVT prophylaxis and pain management. He progressed quite well with his physical therapy and he was hoping to go home. With his slight bump in his creatinine to 1.9, Dr. Stephens saw the patient later that afternoon and after discussion, it was felt that he could be discharged to home with plans to have a follow up BUN and creatinine blood draw the following day per home health and sent to his primary care physician. The patient was otherwise remaining medically stable as well as orthopedically stable and it was felt he could be discharged to home on 05/19/2017. For further review, please see chart. LABORATORY AND X-RAY DATA: As per chart. DISCHARGE INSTRUCTIONS: The patient was discharged to home in satisfactory condition on 05/19/2017. ACTIVITY: Weightbearing as tolerated on the affected extremity. Follow TK instruction sheets and special care instructions as noted. FOLLOWUP: Follow up with Dr. Leon in 2 weeks. The patient to call for appointment if one has not been made for you. DISCHARGE INSTRUCTIONS: The patient is to hold his lisinopril and Lasix, for the time being. Home health to do to a BMP lab draw the following day from discharge and sent to the primary care physician. Primary care physician will restart lisinopril and Lasix, as per his discretion. If patient does not hear from his primary care physician in the next 24-48 hours after lab draw, he is to call and check with his physician. He should follow up with primary care physician within in 7-10 days, discharged for a BP check. DISCHARGE MEDICATIONS: Oxycodone 5-10 mg p.o. q. 4 hours p.r.n., rivaroxaban 10 mg p.o. q. 24 hours. Resume home meds as listed except for furosemide and lisinopril.
== END 2017-05-19 17:31 | disposition home health service (06) | DRG 470 ==
LOC: C.ACU 06:24 → C.3E 06:40 → ENRESERV 10:17
PROVIDERS: ADMIT Orthopaedic Surgery; ATTEND Orthopaedic Surgery
PROC: 0SRT0J9 Replacement of Right Knee Joint, Femoral Surface with Synthetic Substitute, Cemented, Open Approach (ICD-10-PCS; principal; 2017-05-18 10:15)
DX: M17.11 Unilateral primary osteoarthritis, right knee (principal); N17.9 Acute kidney failure, unspecified; N18.3 Chronic kidney disease, stage 3 (moderate); Z79.82 Long term (current) use of aspirin